=== PATIENT | male | born 1970 | race Caucasian/White ===

== ENCOUNTER 2017-04-08 15:33 | Emergency (ER) | payer BC ==
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
--- NOTE | 2017-04-09 10:31 | RADIOLOGY REPORT ---
EXAM: LEFT SHOULDER HISTORY: PATIENT FELL ON LEFT SHOULDER WITH PAIN. TECHNIQUE: Three views of the left shoulder were obtained. Comparison: None. Encounter: Initial. FINDINGS: The glenohumeral joint appears intact with no fracture or dislocation of the glenohumeral joint evident. There does appear to be some deformity of the lateral aspect of the clavicle probably representing an old healed fracture although less obvious on a prior chest x-ray of 12/28/16. In addition, there is now offset at the left acromioclavicular joint which was not apparent on the prior study probably representing an acute left acromioclavicular joint injury with dislocation of the lateral end of the clavicle superiorly relative to the acromion as well as some widening of the acromioclavicular joint. There is a bony projection along the inferior aspect of the distal clavicle which appears chronic in nature although was not readily seen on the prior chest x-ray as well. This may be residual deformity from an old clavicular fracture and clinical correlation as to whether there is a history of prior left clavicle injury would be useful. Comparison with any prior left shoulder or clavicle series would also be useful in this regard. IMPRESSION: 1. THE GLENOHUMERAL JOINT APPEARS NEGATIVE. 2. APPARENT DISLOCATION AT THE LEFT ACROMIOCLAVICULAR JOINT WHICH APPEARS NEW COMPARED WITH THE CHEST X-RAY OF 12/28/16. DEFORMITY LATERALLY IN THE LEFT CLAVICLE ITSELF IS PROBABLY CHRONIC IN NATURE REPRESENTING AN OLD CLAVICULAR FRACTURE, BUT CLINICAL CORRELATION IS SUGGESTED. JOB NUMBER: [id number] MTDD
== END 2017-04-08 16:57 | disposition home or self-care (01) ==
LOC: ER 15:33
DX: S43.102A Unspecified dislocation of left acromioclavicular joint, initial encounter (principal); V86.55XA Driver of 3- or 4- wheeled all-terrain vehicle (ATV) injured in nontraffic accident, initial encounter
CPT/HCPCS: 99283

== ENCOUNTER 2019-08-22 09:10 | Emergency (ER) | payer BC ==
[2019-08-22] MEDS ORDERED: ALBUTEROL SULFATE (0.083%) 2.5 MG/3 ML NEB INH ONE (09:17)
[2019-08-22] MEDS ORDERED: DIPHENHYDRAMINE HCL 50 MG/ML VIAL IVP ONE (09:17)
[2019-08-22] MEDS ORDERED: METHYLPREDNISOLONE PF 125MG/VIAL IVP ONE (09:17)
[2019-08-22] MEDS ORDERED: RANITIDINE HCL 50 MG in 0.9 % SODIUM CHLORIDE 100ML 100 ML IVPB ONE (09:17)
[2019-08-22] MEDS ORDERED: IPRATROPIUM/ALBUTEROL (0.5MG/3MG) NEB INH ONE (09:18)
--- NOTE | 2019-08-22 09:22 | Emergency Department Record ---
History of Present Illness - General Stated complaint: FACIAL SWELLING Time Seen by Provider: 08/22/19 09:11 Source: Patient, Family Mode of Arrival: Ambulatory Limitations: No limitations - History of Present Illness Initial Comments: 48 yo male presents with swelling of the upper lip, eye lids, and upper face. He states the onset was yesterday around lunch. He also noticed three "bites" on the right posterior neck. He denies any pain, fever, or trouble breathing. He denies and tongue or throat involvement. He is not short of breath. He is a smoker that occasionally uses an inhaler. No chest pain. No pain. The swelling of the eye lids and upper lip are symmetric. He is not on an Manish-I or ARB. On 08/11 he was treated with an oral and topical antibiotic for a left arm soft tissue infection. He has had robust reactions to flea bites in the past. No drug allergy history. No other areas of the body are infected. He reports he is actually better today than yesterday but was concerned since it is not gone. MD Complaint: Allergic reaction, Hives, Facial swelling -: Days(s) (1) Exposure: Insect bite Symptoms: Itching, Rash, Facial swelling, Lip swelling Severity: Mild Treatment Prior to Arrival: Benadryl (2 tabs yesterday with some improvement) Previous Allergy History: Other (local swelling to bug and flea bites) - Related Data Previous Rx's Medication Instructions Recorded Diphenhydramine HCl [Benadryl] 25 mg PO Q6H #20 cap 08/22/19 Prednisone [Prednisone 20Mg] 20 mg PO BID #12 tab 08/22/19 Ranitidine HCl [Zantac] 150 mg PO BID #14 tablet 08/22/19 Allergies Allergy/AdvReac Type Severity Reaction Status Date / Time cottonseed oil AdvReac VOMITING Verified 08/22/19 09:27 soybean AdvReac VOMITING Verified 08/22/19 09:27 Review of Systems Constitutional: Denies: Chills, Fever, Malaise, Weakness Eyes: Denies: Eye discharge, Eye pain, Photophobia, Vision change ENT: Denies: Congestion, Ear pain, Epistaxis, Throat pain Respiratory: Reports: Wheezes (Hx of the same, he is not symptomatic). Denies: Cough, Dyspnea, Hemoptysis Cardiovascular: Denies: Chest pain, Dyspnea on exertion, Edema, Syncope Endocrine: Denies: Fatigue, Polydipsia, Polyuria Gastrointestinal: Denies: Abdominal pain, Diarrhea, Nausea, Vomiting Genitourinary: Denies: Dysuria, Frequency, Hematuria Musculoskeletal: Denies: Arthralgia, Back pain, Myalgia Skin: Reports: Change in color, Rash Neurological: Denies: Abnormal gait, Headache, Numbness, Tremors, Weakness Psychiatric: Denies: Anxiety Hematological/Lymphatic: Denies: Easy bleeding, Easy bruising Past Medical History - SOCIAL HISTORY Smoking Status: Current every day smoker - RESPIRATORY Hx Respiratory Disorders: No - CARDIOVASCULAR Hx Hypertension: Yes - NEURO Hx Neuro Disorders: No - GI Hx GI Disorders: No - Hx Genitourinary Disorders: No - ENDOCRINE Hx Endocrine Disorders: No - MUSCULOSKELETAL Hx Back Injury: Yes - PSYCH Hx Psych Problems: No - HEMATOLOGY/ONCOLOGY Hx Hematology/Oncology Disorders: No Physical Exam - General General Appearance: Alert, Oriented x3, Cooperative, No acute distress Limitations: No limitations - Head Head exam: Atraumatic, Normocephalic. negative: Normal inspection Image of Face/Head: 1 - mild, symmetric swelling of the upper lip, nose, eye lids. normal tongue. normal lower lip. normal neck. spares ears. clear normal voice. normal oral pharynx 2 - rash, mild erythema, 3 papular 5mm raises bumps. consistent with an insect bite. no vesicles. no fluctunce - Eye Eye exam: PERRL, EOMI, Periorbital swelling. negative: Normal appearance, Conjunctival injection, Nystagmus, Periorbital tenderness - ENT ENT exam: Mucous membranes moist, Normal external ear exam, Normal orophraynx, TM's normal bilaterally. negative: Mucous membranes dry Ear exam: Normal external inspection. negative: External canal tenderness Nasal Exam: negative: Active bleeding, Discharge, Dried blood, Foreign body, Sinus tenderness Mouth exam: Normal external inspection, Tongue normal. negative: Drooling, Muffled voice, Tongue elevation Teeth exam: Normal inspection Throat exam: Normal inspection - Neck Neck exam: Normal inspection, Full ROM, Other (soft supple, no JVD or prominent neck veins). negative: Lymphadenopathy, Tenderness - Respiratory Respiratory exam: Wheezes (mild, minimal expiratory. (patient is asymptomatic)). negative: Normal lung sounds bilaterally, Accessory muscle use, Decreased breath sounds, Prolonged expiratory, Rales, Respiratory distress, Rhonchi, Stridor - Cardiovascular Cardiovascular Exam: Regular rate, Normal rhythm, Normal heart sounds - GI/Abdominal GI/Abdominal exam: Soft, Other (Normal inspection). negative: Tenderness - Extremities Extremities exam: Normal inspection. negative: Pedal edema, Tenderness - Back Back exam: Reports: Normal inspection - Neurological Neurological exam: Alert, Normal gait, Oriented X3. negative: Abnormal gait - Psychiatric Psychiatric exam: Normal affect, Normal mood. negative: Agitated, Anxious - Skin Skin exam: Rash, Urticaria Course - Reevaluation(s) Reevaluation #1: 08/22/19 09:32 The rash is consistent with allergic in nature (not infectious, no likely SVC syndrome with the three bites) With the three bites on the neck, an allergic response is most likely The patient is essentially asymptomatic and comfortable He is not and has not had any respiratory involvement, tongue or throat involvement, swallowing involvement, shortness of breath. He is improved today from yesterday demonstrating stability He is a chronic smoker with mild wheeze. He is asymptomatic with the wheeze. 08/22/19 09:34 08/22/19 09:54 The CBC was reviewed. No significant abnormality 08/22/19 10:17 The CXR was reviewed. Normal heart and mediastinum. No infiltrate or mass apparent 08/22/19 10:35 The BMP was resulted No acute changes The patient continues to do well. No shortness of breath. No tongue or throat symptoms. The patient is improved. He has been stable and improving since yesterday. I think he will continue on this trajectory of improvement as he has not shown any signs of digression. I discussed with him home care, prescriptions, reasons to return immediately if any concerns. I encouraged him to stop smoking. He is a 1+ pack per day smoker. He likely has a component of COPD given his asymptomatic wheeze. He has a normal work of breathing without an dyspnea. 08/22/19 10:38 08/22/19 10:53 At MT the patient is doing well We discussed again reasons to return in the next 12-24 hours if not improving and sooner if worse I encouraged him to ice the area as well Medical Decision Making - Lab Data Result diagrams: 08/22/19 09:25 08/22/19 09:25 Disposition Disposition: Discharge Clinical Impression: Allergic reaction Disposition: Home, Self-Care Condition: (1) Good Instructions: General Allergic Reaction (ED) Additional Instructions: Review this ER visit and the tests performed with your family doctor Call your doctor for the next available follow up appointment Return to the ER for a recheck immediately if worse, any new concerns or questions Take the prescriptions provided as directed Prescriptions: Diphenhydramine HCl [Benadryl] 25 mg PO Q6H #20 cap Prednisone [Prednisone 20Mg] 20 mg PO BID #12 tab Ranitidine HCl [Zantac] 150 mg PO BID #14 tablet Forms: Patient Portal Access Time of Disposition: 10:38 Quality - Quality Measures Quality Measures: N/A - Blood Pressure Screening Does Patient Have Any of the Following: Active Dx of HTN Blood Pressure Classification: Hypertensive Reading Systolic Measurement: 129 Diastolic Measurement: 92 Screening for High Blood Pressure: Patient Exclusion, Hx of HTN [G9744]
[2019-08-22 09:40] LABS: ABSOLUTE NEUTROPHIL COUNT 2.02; HEMATOCRIT 47.7 % (42.0-52.0); HEMOGLOBIN 15.6 gm/dl (14.0-18.0); MEAN CELL VOLUME 97.3 fl (81-97); MEAN CORPUSCULAR HEMOGLOBIN 31.8 pg (27-33); MEAN CORPUSCULAR HGB CONC 32.7 g/dl (32-36); MEAN PLATELET VOLUME 10.6 fl (7.4-10.4); PLATELET COUNT 250 K/uL (130-400); RED CELL DISTRIBUTION WIDTH 15.6 % (11.5-14.5); WHITE BLOOD COUNT W/O DIFF 4.9 K/uL (4.2-12.2)
[2019-08-22 09:48] LABS: BLOOD UREA NITROGEN 12 mg/dL (6-20); CREATININE 0.8 mg/dL (0.7-1.2); EST GLOMERULAR FILTRATION RATE > 60 mL/min
[2019-08-22 09:51] LABS: GLUCOSE,RANDOM 97 mg/dL (74-109)
[2019-08-22 10:00] LABS: PLATELET ESTIMATE NORMAL (NORMAL)
--- NOTE | 2019-08-22 10:46 | RADIOLOGY REPORT ---
EXAMINATION: Two View Chest Radiographs EXAM DATE: 08/22/2019 10:08 AM TECHNIQUE: Frontal and lateral views INDICATION: wheeze COMPARISON: 05/27/2018, 12/26/2016 ENCOUNTER: Initial FINDINGS: Cardiomediastinal silhouette: no abnormality. Peripheral pulmonary vasculature: nondilated. There is no airspace disease. There is no pleural fluid. There is no acute osseous abnormality. Nonacute previous fractures of the anterior lateral aspects of right ribs nine and 10, unchanged from 05/27/2018. Abnormality of the posterior lateral aspect of right rib 10. Although not well seen on t he 05/27/2018 study, it appears to be present on that study consistent with a nonacute previous rib f racture.. Slight abnormality of rib contour of the left seventh rib anteriorly unchanged from that da te and also from 12/26/2016. IMPRESSION: No acute cardiopulmonary disease. Previous right rib fractures. Dictated by: Faustino Carpenter MD on 08/22/2019 10:34 AM. .
== END 2019-08-22 11:00 | disposition home or self-care (01) ==
LOC: ER 09:10
DX: T63.481A Toxic effect of venom of other arthropod, accidental (unintentional), initial encounter (principal); R22.0 Localized swelling, mass and lump, head; R21 Rash and other nonspecific skin eruption; R06.2 Wheezing; I10 Essential (primary) hypertension; F17.210 Nicotine dependence, cigarettes, uncomplicated
CPT/HCPCS: 99284 ×2; 96365; 96375; 85025; 80048; 80053; 83036; 84443; 80061; 85027; 71046; 94640 ×2; J1200; J2780; J2930; J7613

== ENCOUNTER 2019-08-26 07:58 | Emergency (ER) | payer BC ==
[2019-08-26] MEDS ORDERED: CLONIDINE HCL 0.1 MG TABLET PO ONE (08:23)
[2019-08-26 08:35] LABS: ABSOLUTE NEUTROPHIL COUNT 4.72; HEMATOCRIT 45.6 % (42.0-52.0); HEMOGLOBIN 14.5 gm/dl (14.0-18.0); MEAN CELL VOLUME 98.9 fl (81-97); MEAN CORPUSCULAR HEMOGLOBIN 31.5 pg (27-33); MEAN CORPUSCULAR HGB CONC 31.8 g/dl (32-36); MEAN PLATELET VOLUME 10.2 fl (7.4-10.4); PLATELET COUNT 249 K/uL (130-400); RED BLOOD COUNT 4.61 M/uL (4.40-5.70); RED CELL DISTRIBUTION WIDTH 15.8 % (11.5-14.5); WHITE BLOOD COUNT W/O DIFF 5.7 K/uL (4.2-12.2)
[2019-08-26 08:45] LABS: BLOOD UREA NITROGEN 13 mg/dL (6-20); CREATININE 0.8 mg/dL (0.7-1.2); EST GLOMERULAR FILTRATION RATE > 60 mL/min; TOTAL PROTEIN 7.3 g/dL (6.6-8.7)
[2019-08-26 08:47] LABS: GLUCOSE,RANDOM 116 mg/dL (74-109); PLATELET ESTIMATE NORMAL (NORMAL)
[2019-08-26 08:50] LABS: ALB/GLOB RATIO 1.4 (1.1-1.8); ALBUMIN 4.3 g/dL (4.0-5.0); ALKALINE PHOSPHATASE 76 U/L (40-129); ALT/SGPT 59 U/L (<41); AST/SGOT 41 U/L (10.0-50.0)
[2019-08-26] MEDS ORDERED: CARVEDILOL 12.5 MG TABLET PO ONE (09:15)
[2019-08-26] MEDS ORDERED: HYDROCHLOROTHIAZIDE 25 MG TABLET PO ONE (09:15)
--- NOTE | 2019-08-26 09:22 | Emergency Department Record ---
History of Present Illness - General Chief Complaint: Hypertension Stated Complaint: HIGH BLOOD PRESSURE Time Seen by Provider: 08/26/19 08:05 Source: Patient Mode of Arrival: Ambulatory Limitations: No limitations - History of Present Illness Initial Comments: pt came in because he 'felt funny'. he had a hard time describing what that was. he stated he felt anxious. he has stopped takeing his coreg because he thought it was making him swell. he has been on steroids for allergic rxn. he has not taken his hctz this am. he has no cp or kumari. his so took his bp and found it to be 256/ and brought him in Onset/Timin -: Hour(s) Timing: Gradual onset Improves With: Nothing Worsens With: Nothing Associated Symptoms: Other - [place] Coma Scale Eye Response: (4) Open spontaneously Motor Response: (6) Obeys commands Verbal Response: (5) Oriented [place] Total: 15 - Related Data Previous Rx's Medication Instructions Recorded Diphenhydramine HCl [Benadryl] 25 mg PO Q6H #20 cap 08/22/19 Prednisone [Prednisone 20Mg] 20 mg PO BID #12 tab 08/22/19 Ranitidine HCl [Zantac] 150 mg PO BID #14 tablet 08/22/19 Allergies Allergy/AdvReac Type Severity Reaction Status Date / Time cottonseed oil AdvReac VOMITING Verified 08/26/19 08:10 soybean AdvReac VOMITING Verified 08/26/19 08:10 Travel/Exposure Screening - Travel/Exposure Within Last 30 Days Have you traveled within the last 30 days?: No - Travel/Exposure Within Last Year Have you traveled outside the [place] in the last year?: No - Additonal Travel/Exposure Details Have you been exposed to anyone with a communicable illness?: No - Travel Symptoms Symptom Screening: None Review of Systems Reviewed: No additional complaints except as noted below Constitutional: Reports: As per HPI. Denies: Chills, Fever, Malaise, Night sweats, Weakness, Weight change Eyes: Reports: As per HPI. Denies: Eye pain, Photophobia, Vision change ENT: Reports: As per HPI. Denies: Congestion, Dental pain, Ear pain, Epistaxis, Hearing loss, Throat pain Respiratory: Reports: As per HPI. Denies: Cough, Dyspnea, Wheezes Cardiovascular: Reports: As per HPI, Edema. Denies: Arrhythmia, Chest pain, Dyspnea on exertion, Murmurs, Orthopnea, Palpitations, Paroxysmal nocturnal dyspnea, Syncope Endocrine: Reports: As per HPI. Denies: Fatigue, Heat or cold intolerance, Polydipsia, Polyuria Gastrointestinal: Reports: As per HPI. Denies: Abdominal pain, Constipation, Diarrhea, Hematemesis, Hematochezia, Melena, Nausea, Vomiting Genitourinary: Reports: As per HPI. Denies: Dysuria, Frequency, Hematuria, Incontinence, Retention, Testicular pain, Testicular mass, Urgency Musculoskeletal: Reports: As per HPI, Back pain. Denies: Arthralgia, Gout, Joint swelling, Myalgia, Neck pain Skin: Reports: As per HPI. Denies: Bruising, Change in color, Change in hair/nails, Lesions, Pruritus, Rash Neurological: Reports: As per HPI. Denies: Abnormal gait, Confusion, Headache, Numbness, Paresthesias, Seizure, Tingling, Tremors, Vertigo, Weakness Psychiatric: Reports: As per HPI, Anxiety. Denies: Auditory hallucinations, Depression, Homicidal thoughts, Suicidal thoughts, Visual hallucinations Hematological/Lymphatic: Reports: As per HPI. Denies: Anemia, Blood Clots, Easy bleeding, Easy bruising, Swollen glands Past Medical History - SOCIAL HISTORY Smoking Status: Current every day smoker Alcohol Use: Heavy Drug Use: Occasional Drug Use Detail:: Marijuana - RESPIRATORY Hx Respiratory Disorders: No Hx Bronchitis: Yes Hx Pneumonia: Yes - CARDIOVASCULAR Hx Cardio Disorders: Yes Hx Hypertension: Yes - NEURO Hx Neuro Disorders: No Hx Dizziness: Yes - GI Hx GI Disorders: No - Hx Genitourinary Disorders: No - ENDOCRINE Hx Endocrine Disorders: No - MUSCULOSKELETAL Hx Back Injury: Yes - PSYCH Hx Psych Problems: No - HEMATOLOGY/ONCOLOGY Hx Hematology/Oncology Disorders: No Family Medical History Any Significant Family History?: No Physical Exam - General General Appearance: Alert, Oriented x3, Cooperative, No acute distress - Head Head exam: Normal inspection - Eye Eye exam: Normal appearance, PERRL, EOMI Pupils: Normal accommodation - ENT ENT exam: Normal exam, Mucous membranes moist, Normal external ear exam, Normal orophraynx Ear exam: Normal external inspection. negative: External canal tenderness Nasal Exam: Normal inspection. negative: Discharge, Sinus tenderness Mouth exam: Normal external inspection, Tongue normal Teeth exam: Normal inspection. negative: Dental caries Throat exam: Normal inspection. negative: Tonsillar erythema, Tonsillar exudate - Neck Neck exam: Normal inspection, Full ROM. negative: Tenderness - Respiratory Respiratory exam: Normal lung sounds bilaterally. negative: Respiratory distress - Cardiovascular Cardiovascular Exam: Normal rhythm, Normal heart sounds, Tachycardia - GI/Abdominal GI/Abdominal exam: Soft, Normal bowel sounds. negative: Tenderness - Rectal Rectal exam: Deferred - exam: Deferred - Extremities Extremities exam: Normal inspection, Full ROM, Normal capillary refill. negative: Tenderness - Back Back exam: Reports: Normal inspection, Full ROM. Denies: Muscle spasm, Rash noted, Tenderness - Neurological Neurological exam: Alert, CN II-XII intact, Normal gait, Oriented X3 - Psychiatric Psychiatric exam: Normal affect, Normal mood - Skin Skin exam: Dry, Intact, Normal color, Warm Course Vital Signs 08/26/19 08/26/19 08:01 09:14 Temperature 98.7 F Pulse Rate 110 H Pulse Rate [ 102 H Pulse Ox Probe] Respiratory 18 16 Rate Blood Pressure 204/129 Blood Pressure 180/129 [Right Arm] Pulse Ox 94 L 92 L - Reevaluation(s) Reevaluation #1: 08/26/19 10:40 pt feels better 08/26/19 10:40 pt warned about abuse of alcohol and of driving with alcohol Medical Decision Making - Lab Data Result diagrams: 08/26/19 08:29 08/26/19 08:29 Lab Results 08/26/19 08/26/19 Range/Units 08:29 08:29 WBC 5.7 (4.2-12.2) K/uL RBC 4.61 (4.40-5.70) M/uL Hgb 14.5 (14.0-18.0) gm/dl Hct 45.6 (42.0-52.0) % MCV 98.9 H (81-97) fl MCH 31.5 (27-33) pg MCHC 31.8 L (32-36) g/dl RDW 15.8 H (11.5-14.5) % Plt Count 249 (130-400) K/uL MPV 10.2 (7.4-10.4) fl Neutrophils % 83.0 H (47-80) % Eosinophils % Not Reportable Basophils % Not Reportable Absolute Neutrophils 4.72 Lymphocytes 16.0 (16-45) % Monocytes 1.0 (0-9) % Platelet Estimate Normal (NORMAL) RBC Morphology Normal Sodium 140 (136-145) mmol/L Potassium 4.0 (3.4-4.5) mmol/L Chloride 96 L (98-107) mmol/L Carbon Dioxide 29.0 (22-29) mmol/L Anion Gap 15.0 (7-16) BUN 13 (6-20) mg/dL Creatinine 0.8 (0.7-1.2) mg/dL Estimated GFR > 60 mL/min Random Glucose 116 H (74-109) mg/dL Calcium 8.7 (8.6-10.0) mg/dL Total Bilirubin 0.30 (0.2-1.0) mg/dL AST 41 (10.0-50.0) U/L ALT 59 H (<41) U/L Alkaline Phosphatase 76 (40-129) U/L Troponin T < 0.010 (0-0.010) ng/mL Total Protein 7.3 (6.6-8.7) g/dL Albumin 4.3 (4.0-5.0) g/dL Globulin 3.0 (1.4-4.8) gm/dL Albumin/Globulin Ratio 1.4 (1.1-1.8) Disposition Disposition: Discharge Clinical Impression: Alcohol abuse HTN (hypertension) Qualifiers: Hypertension type: essential hypertension Qualified Code(s): I10 - Essential (primary) hypertension Disposition: Home, Self-Care Condition: (1) Good Instructions: Hypertension (ED), Alcohol Dependence (ED), Alcohol Use Disorder (ED) Additional Instructions: take hypertensive meds as prescribed. recheck blood pressure daily. follow up with family doctor within next few days. decrease alcohol. rest Forms: Patient Portal Access, Return to Work/School Quality - Quality Measures Quality Measures: N/A - Blood Pressure Screening Does Patient Have Any of the Following: Active Dx of HTN Blood Pressure Classification: Hypertensive Reading Systolic Measurement: 204 Diastolic Measurement: 129 Screening for High Blood Pressure: Patient Exclusion, Hx of HTN [G9744]
== END 2019-08-26 10:59 | disposition home or self-care (01) ==
LOC: ER 07:58
DX: I10 Essential (primary) hypertension (principal); F17.210 Nicotine dependence, cigarettes, uncomplicated; R11.0 Nausea; F10.129 Alcohol abuse with intoxication, unspecified; Y90.6 Blood alcohol level of 120-199 mg/100 ml
CPT/HCPCS: 80053; 80320; 84484; 85027; 93005; 93010; 99284

== ENCOUNTER 2019-08-27 01:38 | Observation (INO) | payer BC ==
[2019-08-27] MEDS ORDERED: FAMOTIDINE IV 20 MG/2 ML VIAL IVP ONE (01:48)
[2019-08-27] MEDS ORDERED: DIPHENHYDRAMINE HCL 50 MG/ML VIAL IVP ONE (01:48)
[2019-08-27] MEDS ORDERED: METHYLPREDNISOLONE PF 125MG/VIAL IVP ONE (01:48)
--- NOTE | 2019-08-27 01:54 | Emergency Department Record ---
History of Present Illness - General Chief complaint: Facial Swelling Stated complaint: LIP SWELLING Time Seen by Provider: 08/27/19 01:38 Source: Patient Mode of Arrival: Ambulatory Limitations: No limitations - History of Present Illness Initial Comments: 48 yo male presents to ED for re-evaluation following ED visit 08/22 and earlier this morning. Patient was seen 08/22 for (3) bites to the posterior aspect of the neck and upper lip swelling, and had started a new BP medication earlier in the week (Coreg) Patient was treated and evaluated for angio-edema, underwent numerous laboratory and chest radiograph to exclude mediastinal mass resulting in SVC syndrome. Patient improved in the ED, was discharged home on Prednisone, Benadryl, and Pepcid. Coreg was held at that time. Patient returned to the ED this morning for elevated blood pressure, reports that his Coreg was restarted. Patient reports that he awoke this morning with swelling of the lower lip this evening. Patient denies throat swelling or difficulty in breathing symptoms. MD Complaint: Allergic reaction, Facial swelling -: Hour(s) Exposure: Medication Symptoms: Itching, Lip swelling Severity: Moderate - Related Data Previous Rx's Medication Instructions Recorded Diphenhydramine HCl [Benadryl] 25 mg PO Q6H #20 cap 08/22/19 Prednisone [Prednisone 20Mg] 20 mg PO BID #12 tab 08/22/19 Ranitidine HCl [Zantac] 150 mg PO BID #14 tablet 08/22/19 Allergies Allergy/AdvReac Type Severity Reaction Status Date / Time cottonseed oil AdvReac VOMITING Verified 08/27/19 01:47 soybean AdvReac VOMITING Verified 08/27/19 01:47 Travel/Exposure Screening - Travel/Exposure Within Last 30 Days Have you traveled within the last 30 days?: No - Travel/Exposure Within Last Year Have you traveled outside the [place] in the last year?: No - Additonal Travel/Exposure Details Have you been exposed to anyone with a communicable illness?: No - Travel Symptoms Symptom Screening: None Review of Systems Constitutional: Denies: Chills, Fever, Malaise, Night sweats Eyes: Denies: Eye discharge, Eye pain ENT: Reports: Other (Lip swelling). Denies: Congestion, Ear pain, Epistaxis Respiratory: Denies: Cough, Dyspnea Cardiovascular: Denies: Chest pain, Dyspnea on exertion Endocrine: Denies: Fatigue, Heat or cold intolerance Gastrointestinal: Denies: Abdominal pain, Nausea, Vomiting Genitourinary: Denies: Incontinence, Retention Musculoskeletal: Denies: Arthralgia, Back pain Skin: Denies: Bruising, Change in color Neurological: Denies: Abnormal gait, Confusion, Headache, Seizure Psychiatric: Denies: Anxiety Hematological/Lymphatic: Denies: Anemia, Blood Clots Past Medical History - SOCIAL HISTORY Smoking Status: Current every day smoker Alcohol Use: Heavy Drug Use Detail:: Marijuana - RESPIRATORY Hx Respiratory Disorders: Yes Hx Bronchitis: Yes Hx Pneumonia: Yes - CARDIOVASCULAR Hx Cardio Disorders: Yes Hx Hypertension: Yes - NEURO Hx Neuro Disorders: Yes Hx Dizziness: Yes - GI Hx GI Disorders: No - Hx Genitourinary Disorders: No - ENDOCRINE Hx Endocrine Disorders: No - MUSCULOSKELETAL Hx Musculoskeletal Disorders: Yes Hx Back Injury: Yes - PSYCH Hx Psych Problems: No - HEMATOLOGY/ONCOLOGY Hx Hematology/Oncology Disorders: No Family Medical History Any Significant Family History?: No Physical Exam - General General Appearance: Alert, Oriented x3, Cooperative, Moderate distress Limitations: No limitations - Head Head exam: Atraumatic, Normocephalic, Normal inspection Head exam detail: negative: Abrasion, Contusion, Cornell's sign, General tenderness, Hematoma, Laceration - Eye Eye exam: Periorbital swelling. negative: Conjunctival injection, Periorbital tenderness, Scleral icterus - ENT Ear exam: negative: Auricular hematoma, Auricular trauma Nasal Exam: negative: Active bleeding, Discharge, Dried blood, Foreign body Mouth exam: Other (Edema to the lower lip is present on examination). negative: Drooling, Laceration, Muffled voice, Tongue elevation Throat exam: negative: Tonsillar erythema, Tonsillomegaly, R peritonsillar mass, L peritonsillar mass - Neck Neck exam: Normal inspection. negative: Meningismus, Tenderness - Respiratory Respiratory exam: Normal lung sounds bilaterally. negative: Rales, Respiratory distress, Rhonchi, Stridor - Cardiovascular Cardiovascular Exam: Regular rate, Normal rhythm, Normal heart sounds - GI/Abdominal GI/Abdominal exam: Soft. negative: Rebound, Rigid, Tenderness - Rectal Rectal exam: Deferred - exam: Deferred - Extremities Extremities exam: Normal inspection. negative: Pedal edema, Tenderness - Back Back exam: Denies: CVA tenderness (R), CVA tenderness (L) - Neurological Neurological exam: Alert, Normal gait, Oriented X3 - Psychiatric Psychiatric exam: Normal affect, Normal mood - Skin Skin exam: Normal color. negative: Abrasion Type of lesion: negative: abrasion Course Vital Signs 08/27/19 01:45 Temperature 98.1 F Pulse Rate [ 90 Pulse Ox Probe] Respiratory 20 Rate Blood Pressure 163/114 [Left Arm] Pulse Ox 95 - Reevaluation(s) Reevaluation #1: 08/27/19 01:55 Previous records from 08/22 and 08/26 were reviewed: CXR: No acute process Laboratory studies appear grossly unremarkable for an acute process except for an elevated alcohol level. Patient was seen and examined, will admit for treatment of angio-edema as well discontinuation of Coreg and evaluation for another class medication for control of the patient's blood pressure. Reevaluation #2: 08/27/19 02:51 Case was discussed with Debbie Temple NP, will accept admission at this time. Disposition Disposition: Admit Clinical Impression: Angioedema Qualifiers: Encounter type: subsequent encounter Qualified Code(s): T78.3XXD - Angioneurotic edema, subsequent encounter Disposition: Still a Patient at [facility] Decision to Admit: Admit from ER Decision to Admit Date: 08/27/19 Decision to Admit Time: :54 Condition: (2) Stable Time of Disposition: 01:54 Quality - Quality Measures Quality Measures: N/A - Blood Pressure Screening Does Patient Have Any of the Following: Active Dx of HTN Blood Pressure Classification: Hypertensive Reading Systolic Measurement: 151 Diastolic Measurement: 112 Screening for High Blood Pressure: Patient Exclusion, Hx of HTN [G9744]
[2019-08-27] MEDS ORDERED: DIPHENHYDRAMINE HCL 50 MG/ML VIAL IVP PRN (02:39)
[2019-08-27] MEDS ORDERED: NICOTINE 21 MG/24 HOUR PATCH TD SCH (02:45)
[2019-08-27] MEDS ORDERED: LORAZEPAM 2 MG/ML VIAL IV PRN (09:36)
[2019-08-27] MEDS: LORAZEPAM 2 MG/ML VIAL IV PRN ×2 (09:48→13:24)
[2019-08-27] MEDS ORDERED: REMOVE PATCH 1 EACH MISC TD SCH (10:00)
[2019-08-27] MEDS ORDERED: METHYLPREDNISOLONE PF 125MG/VIAL IVP SCH (10:00)
[2019-08-27] MEDS ORDERED: HYDROCHLOROTHIAZIDE 25 MG TABLET PO SCH (10:00)
[2019-08-27] MEDS ORDERED: AMLODIPINE BESYLATE 5MG TAB PO SCH (10:00)
--- NOTE | 2019-08-27 10:44 | History & Physical ---
History of Present Illness - Date of Service Date of Service for History & Physical: 08/27/19 - History of Present Illness Admitting Diagnosis: Angioedema History of Present Illness: 48 year old male patient presented to ED for evaluation of lower lip swelling. Patient has had multiple ED visits since 08/22/19 due to facial swelling and hives. Patient recently started on Coreg and HCTZ 08/22/19 due to uncontrolled HTN. Patient has not been able to establish with a PCP until 09/19, and was started on these medications through [facility], [place]. Patient states that his first dose of both were on 08/22/2019. He also received a dose of Bactrim at that time for a skin infection. Patient was treated with prednisone and instructed to stop the Coreg. Patient reports checking his BP at home 08/26 due to "feeling funny" and noted it to be >200/100. Patient was then again seen in the ED, had a normal EKG, and negative lab reviews. Patient was instructed to restart the Coreg and HCTZ at that time due to symptomatic hypertension. Later that day (08/26), patient again noted hives and lower lip swelling. Patient then went back to ED. Denied SOB, CP, or difficulty breathing. Reports being a current ppd smoker > 30 years. Daily alcohol use (4 beers daily). No current PCP ED Course: -08/22/19: CXR unremarkable, CBC, CMP unremarkable -08/26/19: EKG - sinus tachycardia Started on Solumedrol, pepcid, and benadryl 08/27/19: Patient A&O x 4, sitting on edge of bed. Patient noting tremors and sweating, reports last drink 24 hours ago. Continues to have hives on bilateral arms, no further swelling of lips. Patient will be started on Norvasc for HTN m anagement, and continue to monitor for further reaction. Travel/Exposure Screening - Travel/Exposure Within Last 30 Days Have you traveled within the last 30 days?: No - Travel/Exposure Within Last Year Have you traveled outside the [place] in the last year?: No - Additonal Travel/Exposure Details Have you been exposed to anyone with a communicable illness?: No - Travel Symptoms Symptom Screening: None Review of Systems Reviewed: No additional complaints except as noted below Constitutional: Denies: Chills, Fever, Malaise, Night sweats Eyes: Denies: Eye discharge, Eye pain ENT: Reports: Other (lower lip swelling). Denies: Congestion, Ear pain, Epistaxis Respiratory: Denies: Cough, Dyspnea Cardiovascular: Denies: Chest pain, Dyspnea on exertion Endocrine: Denies: Fatigue, Heat or cold intolerance Gastrointestinal: Denies: Abdominal pain, Nausea, Vomiting Genitourinary: Denies: Incontinence, Retention Musculoskeletal: Denies: Arthralgia, Back pain Skin: Reports: Rash (bilateral hives on arms). Denies: Bruising, Change in color Neurological: Denies: Abnormal gait, Confusion, Headache, Seizure Psychiatric: Denies: Anxiety Hematological/Lymphatic: Denies: Anemia, Blood Clots Past Medical History - SOCIAL HISTORY Smoking Status: Current every day smoker Alcohol Use: Heavy Drug Use Detail:: Marijuana - RESPIRATORY Hx Respiratory Disorders: Yes Hx Bronchitis: Yes Hx Pneumonia: Yes - CARDIOVASCULAR Hx Cardio Disorders: Yes Hx Hypertension: Yes - NEURO Hx Neuro Disorders: Yes Hx Dizziness: Yes - GI Hx GI Disorders: No - Hx Genitourinary Disorders: No - ENDOCRINE Hx Endocrine Disorders: No - MUSCULOSKELETAL Hx Musculoskeletal Disorders: Yes Hx Back Injury: Yes - PSYCH Hx Psych Problems: No - HEMATOLOGY/ONCOLOGY Hx Hematology/Oncology Disorders: No Family Medical History Any Significant Family History?: No H&P Meds/Allergies - Allergies Allergies: Allergies Allergy/AdvReac Type Severity Reaction Status Date / Time carvedilol Allergy Severe Angioedema Verified 08/27/19 08:31 hydrochlorothiazide Allergy Severe Angioedema Verified 08/27/19 09:35 cottonseed oil AdvReac VOMITING Verified 08/27/19 01:47 soybean AdvReac VOMITING Verified 08/27/19 01:47 - Home Medications Previous Rx's Medication Instructions Recorded Diphenhydramine HCl [Benadryl] 25 mg PO Q6H #20 cap 08/22/19 Prednisone [Prednisone 20Mg] 20 mg PO BID #12 tab 08/22/19 Ranitidine HCl [Zantac] 150 mg PO BID #14 tablet 08/22/19 - Active Medications Active Medications: Current Medications Amlodipine Besylate (Norvasc) 10 mg PO DAILY TISHA Last Admin: 08/27/19 09:37 Dose: 10 mg Documented by: Diphenhydramine HCl (Benadryl) 25 mg IVP Q6H PRN PRN Reason: ITCHING Last Admin: 08/27/19 09:38 Dose: 25 mg Documented by: Famotidine 20 mg/ Sodium (Chloride) 102 mls @ 408 mls/hr IVPB Q12H [facility] Lorazepam (Ativan) 1 mg IV Q2H PRN PRN Reason: ALCOHOL WITHDRAWAL Last Admin: 08/27/19 09:48 Dose: 1 mg Documented by: Lorazepam (Ativan) 2 mg IV Q1H PRN PRN Reason: ALCOHOL WITHDRAWAL Methylprednisolone Sodium Succinate (Solu-Medrol) 60 mg IVP Q8H [facility] Last Admin: 08/27/19 09:38 Dose: 60 mg Documented by: Miscellaneous (Remove Patch) 1 each TD DAILY [facility] Nicotine (Nicotine 21mg) 1 patch TD Q24H [facility] Last Admin: 08/27/19 06:01 Dose: 1 patch Documented by: Physical Exam - Vital Signs Vital Signs: Vital Signs - Last 24 Hrs Temp Pulse Pulse Resp BP BP BP 08/27/19 09:24 98.3 F 112 H 16 193/120 08/27/19 08:20 98.6 F 117 H 20 208/148 199/139 08/27/19 04:39 98.6 F 83 16 168/113 08/27/19 03:36 82 16 08/27/19 02:39 98.5 F 82 16 161/102 08/27/19 02:33 82 16 151/112 08/27/19 01:45 98.1 F 90 20 163/114 Pulse Ox 08/27/19 09:24 97 08/27/19 08:20 97 08/27/19 04:39 95 08/27/19 03:36 08/27/19 02:39 96 08/27/19 02:33 96 08/27/19 01:45 95 - General General Appearance: Alert, Oriented x3, Cooperative, Mild distress Limitations: No limitations - Head Head exam: Atraumatic, Normocephalic, Normal inspection Head exam detail: negative: Abrasion, Contusion, Cornell's sign, General tenderness, Hematoma, Laceration - Eye Eye exam: Periorbital swelling. negative: Conjunctival injection, Periorbital tenderness, Scleral icterus - ENT ENT exam: Mucous membranes moist Ear exam: Normal external inspection. negative: Auricular hematoma, Auricular trauma Nasal Exam: Normal inspection. negative: Active bleeding, Discharge, Dried blood, Foreign body Mouth exam: Normal external inspection. negative: Drooling, Laceration, Muffled voice, Tongue elevation Throat exam: negative: Tonsillar erythema, Tonsillomegaly, R peritonsillar mass, L peritonsillar mass - Neck Neck exam: Normal inspection. negative: Meningismus, Tenderness - Respiratory Respiratory exam: Wheezes (scattered). negative: Rales, Respiratory distress, Rhonchi, Stridor - Cardiovascular Cardiovascular Exam: Regular rate, Normal rhythm, Normal heart sounds Peripheral Pulses: 2+: Radial (R), Radial (L), Dorsalis Pedis (R), Dorsalis Pedis (L) - GI/Abdominal GI/Abdominal exam: Soft. negative: Rebound, Rigid, Tenderness - Rectal Rectal exam: Deferred - exam: Deferred - Extremities Extremities exam: Normal inspection. negative: Pedal edema, Tenderness - Back Back exam: Denies: CVA tenderness (R), CVA tenderness (L) - Neurological Neurological exam: Alert, Normal gait, Oriented X3 - Psychiatric Psychiatric exam: Anxious, Normal mood - Skin Skin exam: Normal color. negative: Abrasion Type of lesion: Rash (hives to bilateral arms). negative: abrasion Results - Imaging and Cardiology Chest x-ray Status: Report reviewed VTE H&P Assessment - Risk for VTE Risk for VTE: Yes Risk Level: Moderate Risk Assessment Date: 08/27/19 Risk Assessment Time: 12:12 VTE Orders Placed or Will Be Placed: Yes Plan - Detailed Diagnosis and Plan (1) Angioedema Current Visit: Yes Status: Acute Qualifiers: Encounter type: subsequent encounter Qualified Code(s): T78.3XXD - Angioneurotic edema, subsequent encounter Base Code: T78.3XXA - ANGIONEUROTIC EDEMA, INITIAL ENCOUNTER Comment: 08/27/19: - 2 episodes of lip swelling after taking Coreg and HCTZ - DC both medications - Solumedrol 60mg IVP q8h - Pepcid 40mg IVP q12h - Benadryl 25mg IVP q6h - Continue to monitor (2) Allergic reaction Current Visit: No Status: Acute Base Code: T78.40XA - ALLERGY, UNSPECIFIED, INITIAL ENCOUNTER Comment: 08/27/19: - New hives noted on bilateral arms - Possible continued rxn to HCTZ, as patient received last dose this morning - Continue to treat with Solumedrol, Pepcid, and Benadryl (3) HTN (hypertension) Current Visit: No Status: Acute Qualifiers: Hypertension type: essential hypertension Base Code: I10 - ESSENTIAL (PRIMARY) HYPERTENSION Comment: 08/27/19: - DC Coreg and HCTZ - BP remains elevated - Starting Norvasc 10mg daily - Continue to monitor for further rxn and BP response (4) Alcohol abuse Current Visit: No Status: Acute Base Code: F10.10 - ALCOHOL ABUSE, UNCOMPL ICATED Comment: 08/27/19: - Reports drinking daily, admits to 4 beers daily - Tremors and sweating noted, last drink reported 24 hours ago - CIWA scale started, with Ativan parameters noted (5) DVT prophylaxis Current Visit: Yes Status: Acute Base Code: Z29.9 - ENCOUNTER FOR MA OPHYLACTIC MEASURES, UNSPECIFIED Comment: 08/27/19: - Moderate risk due to hospitalization - Lovenox 40mg SC daily (6) Full code status Current Visit: Yes Status: Acute Base Code: Z78.9 - OTHER SPECIFIED HEALTH STATUS Comment: 08/27/19: - Full code this admission
[2019-08-27] MEDS ORDERED: FAMOTIDINE IV 20 MG in 0.9 % SODIUM CHLORIDE 100ML 100 ML IVPB SCH (14:00)
--- NOTE | 2019-08-27 16:29 | Discharge Summary ---
Providers Discharge Summary Date: 08/27/19 Date of admission: 08/27/19 02:34 Expected Date of Discharge: 08/27/19 Attending physician: FRANKO VILLEGAS Primary care physician: NIKA MINER M.D. Physical Exam - Vital Signs Vital Signs: Vital Signs - Last 24 Hrs Temp Pulse Pulse Resp BP BP BP 08/27/19 11:06 118 H 16 165/94 08/27/19 09:24 98.3 F 112 H 16 193/120 08/27/19 08:20 98.6 F 117 H 20 208/148 199/139 08/27/19 04:39 98.6 F 83 16 168/113 08/27/19 03:36 82 16 08/27/19 02:39 98.5 F 82 16 161/102 08/27/19 02:33 82 16 151/112 08/27/19 01:45 98.1 F 90 20 163/114 Pulse Ox 08/27/19 11:06 08/27/19 09:24 97 08/27/19 08:20 97 08/27/19 04:39 95 08/27/19 03:36 08/27/19 02:39 96 08/27/19 02:33 96 08/27/19 01:45 95 - General General Appearance: Alert, Oriented x3, Cooperative, Mild distress, Anxious Limitations: No limitations - Head Head exam: Atraumatic, Normocephalic, Normal inspection Head exam detail: negative: Abrasion, Contusion, Cornell's sign, General tenderness, Hematoma, Laceration - Eye Eye exam: Normal appearance, PERRL. negative: Conjunctival injection, Neeta orbital tenderness, Scleral icterus - ENT ENT exam: Mucous membranes moist Ear exam: Normal external inspection. negative: Auricular hematoma, Auricular trauma Nasal Exam: Normal inspection. negative: Active bleeding, Discharge, Dried blood, Foreign body Mouth exam: Normal external inspection. negative: Drooling, Laceration, Muffled voice, Tongue elevation Throat exam: negative: Tonsillar erythema, Tonsillomegaly, R peritonsillar mass, L peritonsillar mass - Neck Neck exam: Normal inspection. negative: Meningismus, Tenderness - Respiratory Respiratory exam: Normal lung sounds bilaterally. negative: Rales, Respiratory distress, Rhonchi, Stridor - Cardiovascular Cardiovascular Exam: Regular rate, Normal rhythm, Normal heart sounds Peripheral Pulses: 2+: Radial (R), Radial (L), Dorsalis Pedis (R), Dorsalis Pedis (L) - GI/Abdominal GI/Abdominal exam: Soft. negative: Rebound, Rigid, Tenderness - Rectal Rectal exam: Deferred - exam: Deferred - Extremities Extremities exam: Normal inspection. negative: Pedal edema, Tenderness - Back Back exam: Denies: CVA tenderness (R), CVA tenderness (L) - Neurological Neurological exam: Alert, Normal gait, Oriented X3 - Psychiatric Psychiatric exam: Anxious, Normal mood - Skin Skin exam: Normal color. negative: Abrasion Type of lesion: Rash (hives to bilateral arms). negative: abrasion Hospitalization - Hospitalization Admission Diagnosis: Angioedema - Problem List/Discharge Diagnosis (1) Angioedema Current Visit: Yes Status: Acute Discharge Diagnosis: Encounter type: subsequent encounter Qualified Code(s): T78.3XXD - Angioneurotic edema, subsequent encounter Base Code: T78.3XXA - ANGIONEUROTIC EDEMA, INITIAL ENCOUNTER Comment: 08/27/19: - 2 episodes of lip swelling after taking Coreg and HCTZ - DC both medications, updated allergies - Solumedrol 60mg IVP q8h, continue Prednisone x 5 days - Pepcid 40mg IVP q12h, continue Zantac at home x 5 days - Benadryl 25mg IVP q6h, continue PO prn - No further symptoms since starting Norvasc (2) Allergic reaction Current Visit: No Status: Acute Base Code: T78.40XA - ALLERGY, UNSPECIFIED, INITIAL ENCOUNTER Comment: 08/27/19: - Hives improved since this morning - Possible continued rxn to HCTZ, as patient received last dose this morning - Continue to treat with Solumedrol, Pepcid, and Benadryl (3) HTN (hypertension) Current Visit: No Status: Acute Discharge Diagnosis: Hypertension type: essential hypertension Qualified Code(s): I10 - Essential (primary) hypertension Base Code: I10 - ESSENTIAL (PRIMARY) HYPERTENSION Comment: 08/27/19: - DC Coreg and HCTZ - BP remains elevated, but patient anxious and pacing at this time - Starting Norvasc 10mg daily, no reaction, continue outpatient - Follow-up with Dr. yenifer scheduled for further HTN management (4) Alcohol abuse Current Visit: No Status: Acute Base Code: F10.10 - ALCOHOL ABUSE, UNCOMPLICATED Comment: 08/27/19: - Reports drinking daily, admits to 4 beers daily - Tremors and sweating noted, last drink reported 24 hours ago - CIWA scale started, with Ativan parameters noted (5) DVT prophylaxis Current Visit: Yes Status: Acute Base Code: Z29.9 - ENCOUNTER FOR PROPHYLACTIC MEASURES, UNSPECIFIED Comment: 08/27/19: - Moderate risk due to hospitalization - Lovenox 40mg SC daily (6) Full code status Current Visit: Yes Status: Acute Base Code: Z78.9 - OTHER SPECIFIED HEALTH STATUS Comment: 08/27/19: - Full code this admission - Hospitalization Course Disposition: Home, Self-Care Hospital Course: 48 year old male patient presented to ED for evaluation of lower lip swelling. Patient has had multiple ED visits since 08/22/19 due to facial swelling and hives. Patient recently started on Coreg and HCTZ 08/22/19 due to uncontrolled HTN. Patient has not been able to establish with a PCP until 09/19, and was started on these medications through [facility]. Patient states that his first dose of both were on 08/22/2019. He also received a dose of Bactrim at that time for a skin infection. Patient was treated with prednisone and instructed to stop the Coreg. Patient reports checking his BP at home 08/26 due to "feeling funny" and noted it to be >200/100. Patient was then again seen in the ED, had a normal EKG, and negative lab reviews. Patient was instructed to restart the Coreg and HCTZ at that time due to symptomatic hypertension. Later that day (08/26), patient again noted hives and lower lip swelling. Patient then went back to ED. Denied SOB, CP, or difficulty breathing. Reports being a current ppd smoker > 30 years. Daily alcohol use (4 beers daily). No current PCP ED Course: -08/22/19: CXR unremarkable, CBC, CMP unremarkable -08/26/19: EKG - sinus tachycardia Started on Solumedrol, pepcid, and benadryl 08/27/19: Patient A&O x 4, sitting on edge of bed. Patient noting tremors and sweating, reports last drink 24 hours ago. Continues to have hives on bilateral arms, no further swelling of lips. Patient will be started on Norvasc for HTN management, and continue to monitor for further reaction. Update: No further symptoms of angioedema, all hives have resolved. Patient remains hypertensive, but pacing in room and anxious. Patient denies CP, SOB, headache, or dizziness. Continue Norvasc 10mg daily, follow-up with PCP for further management. Condition at Discharge: (2) Stable Discharge Medications - Discharge Medications Prescriptions: Amlodipine Besylate [Norvasc] 10 mg PO DAILY #30 tab Home Medications: Ambulatory Orders Diphenhydramine HCl [Benadryl] 25 mg PO Q6H #20 cap 08/22/19 [Last Taken 08/24/19] Prednisone [Prednisone 20Mg] 20 mg PO BID #12 tab 08/22/19 [Last Taken 08/25/19] Ranitidine HCl [Zantac] 150 mg PO BID #14 tablet 08/22/19 [Last Taken 08/26/19] Amlodipine Besylate [Norvasc] 10 mg PO DAILY #30 tab 08/27/19 [Last Taken Unknown] Diphenhydramine HCl IV/IM [Benadryl] 25 mg IVP Q6H PRN vial 08/27/19 [Last Taken Unknown] Discharge Plan - Discharge Instructions Activity at Discharge: Increase Activity as Tolerated Diet at Discharge: Regular Diet Additional Instructions: Discontinue Coreg and Hydrochlorothiazide Start taking Norvasc daily Complete the Prednisone and take Zantac for 5 additional days Continue Benadryl as needed Follow-up with Dr. Miner as scheduled Quality Measures - Quality Measures Quality Measures: Documentation of Current Medications in Medical Record, Screening for High Blood Pressure and F/U Documented - Current Medications Quality Measure: Measure #130: Documentation of Current Medications Documentation of Current Medications: <Current Medications Documented/Reviewed> [G8427] - Blood Pressure Screening Quality Measure: Screening for High Blood Pressure and Follow-Up Documented Does Patient Have Any of the Following: Active Dx of HTN Blood Pressure Classification: Hypertensive Reading Systolic Measurement: 151 Diastolic Measurement: 112 Screening for High Blood Pressure: Patient Exclusion, Hx of HTN [G9744] - Elder Abuse Suspicion Index EASI Reference Information: David ADEN, Corazon C, Guevara D, Yeison Mckenzie.Development and validation of a tool to assist physicians identification of elder abuse: The Elder Abuse Suspicion Index (EASI ). Journal of Elder Abuse and Neglect, 2008; 20 (3): 276-300.
[2019-08-28] MEDS ORDERED: ENOXAPARIN 40 MG/0.4 ML SYR SQ SCH (10:00)
== END 2019-08-27 16:39 | disposition home or self-care (01) ==
LOC: ER 01:38 → MEDSURG 02:34
PROVIDERS: ADMIT Internal Medicine; ATTEND Internal Medicine
DX: T78.3XXD Angioneurotic edema, subsequent encounter (principal); T78.40XA Allergy, unspecified, initial encounter; F10.10 Alcohol abuse, uncomplicated; I10 Essential (primary) hypertension; F17.210 Nicotine dependence, cigarettes, uncomplicated; Z29.9 Encounter for prophylactic measures, unspecified; Z78.9 Other specified health status
CPT/HCPCS: G0378; J1200; J3490; J2060; 96374; 96375; 99236; 99285; J2930